=== PATIENT | male | born 1990 | race African-American/Black ===

== ENCOUNTER 2017-02-17 13:50 | Emergency (ER) | payer SELFPAY ==
[~2017-02-17] VITALS: Ht 182.9 cm; Wt 70.7 kg
[~2017-02-17 13:50] MED LIST: SEROQUEL100 MG PO
[2017-02-17 13:57] VITALS: BP 110/80
[2017-02-17 14:39] LABS: HEMATOCRIT 41.2 % (38.0-50.0); MCH 30.8 PG (29.0-34.0); MCV 93.2 FL (86-99); MEAN PLAT.VOLUME 9.1 uM^3 (9.0-12.4); PLATELET COUNT 278 K/uL (156-360); RBC DIS.WIDTH-SD 44.8 % (39-53); RED BLOOD COUNT 4.42 M/uL (4.00-5.50); WHITE BLOOD COUNT 7.5 K/uL (4.1-10.2)
[2017-02-17 14:47] LABS: CHLORIDE 107 mEq/L (99-109); POTASSIUM 4.1 mEq/L (3.7-5.4); SODIUM 140 mEq/L (136-147)
[2017-02-17 14:49] LABS: GLUCOSE 92 mg/dL (70-99)
[2017-02-17 14:50] LABS: ANION GAP 11 MEQ/L (2-14)
[2017-02-17 14:51] LABS: TOTAL BILIRUBIN 0.7 mg/dL (0.0-1.0)
[2017-02-17 14:52] LABS: ALKALINE PHOSPHATASE 38 IU/L (3-129); SERUM ETHYL ALCOHOL 14 mg/dL
[2017-02-17 14:53] LABS: GFR ESTIMATE (CALCULATED) > 59 mL/min/
[2017-02-17 14:54] LABS: UREA NITROGEN (BUN) 15 mg/dL (9-23)
== END 2017-02-17 15:42 | disposition home or self-care (01) ==
LOC: EME 13:50
PROVIDERS: Nurse Practitioner Family
DX: R55 Syncope and collapse (principal); F12.10 Cannabis abuse, uncomplicated; F16.10 Hallucinogen abuse, uncomplicated; F17.200 Nicotine dependence, unspecified, uncomplicated; M19.90 Unspecified osteoarthritis, unspecified site; J45.909 Unspecified asthma, uncomplicated; F32.9 Major depressive disorder, single episode, unspecified; Z59.0 Homelessness
CPT/HCPCS: 80053; 81003; 85027; 93005; 99281; 99283; G0480